=== PATIENT | female | born 1975 | race Caucasian/White ===

== ENCOUNTER → 2017-01-18 | Outpatient (CLI) | payer MEDICAID | LOC: FIMAGING 10:49 | DX: Z12.31 Encounter for screening mammogram for malignant neoplasm of breast (principal) | CPT/HCPCS: 84481-90; G0202 ==

== ENCOUNTER → 2018-02-18 | Outpatient (CLI) | payer MEDICAID | LOC: FIMAGING 13:37 | PROVIDERS: ATTEND Family Medicine | DX: Z12.31 Encounter for screening mammogram for malignant neoplasm of breast (principal) ==

== ENCOUNTER → 2019-04-23 | Outpatient (CLI) | payer MEDICAID | LOC: FIMAGING 08:19 ==